=== PATIENT | male | born 1945 | race Caucasian/White ===

== ENCOUNTER → 2017-03-16 | Outpatient (CLI) | payer OTHER | END | disposition home or self-care (01) | LOC: CT 15:45 | DX: C78.01 Secondary malignant neoplasm of right lung (principal); C78.7 Secondary malignant neoplasm of liver and intrahepatic bile duct; C80.1 Malignant (primary) neoplasm, unspecified; F17.200 Nicotine dependence, unspecified, uncomplicated; R91.8 Other nonspecific abnormal finding of lung field ==

== ENCOUNTER 2017-04-04 10:28 | Inpatient (IN) | payer OTHER ==
[~2017-04-04] VITALS: Ht 182.8 cm; Wt 70.3 kg
[2017-04-04] VITALS (46 sets, daily range): BP systolic 44–125; BP diastolic 22–63
--- NOTE | ~2017-04-04 | PROC NOTE ---
[place], [place] PROCEDURE NOTE NAME: [id number] UNIT #: [id number] ROOM: [facility] DOCTOR: GLENDY WOLF DO BIRTHDATE: [birth year] DOS: 04/04/2017 PROCEDURE: Arterial line placement. PROCEDURE NOTE: This is a 71-year-old male currently admitted on the hospitalist service for septic shock. I was consulted by the hospitalist to assist with the arterial line placement. The procedure was performed with the assistance of resident Dr. Ruiz. An arterial line was placed in the left radial artery with ultrasound guidance. Sterile technique was maintained. There were no complications during the procedure. GLENDY WOLF DO CM:PROCNOTE:PROCEDURE NOTE [id number] GLENDY WOLF DO
--- NOTE | ~2017-04-04 | EKG ---
[place], [place] ELECTROCARDIOGRAM REPORT NAME: BEE ALVAREZ UNIT #: [id number] ROOM: [facility] DOCTOR: ROLANDA LECHUGA MD,CARMEN BIRTHDATE: [birth year] DOS: 04/04/2017 The electrocardiogram done in 04/04/2017 at 10:26 a.m. Normal sinus rhythm with heart rate of 75 beats per minute without any other acute abnormalities detected. CARMEN ORANTES MD CM:EKGRPT:ELECTROCARDIOGRAM REPORT 1538 1544 CARMEN LECHUGA MD
--- NOTE | ~2017-04-04 | EKG ---
[place], [place] ELECTROCARDIOGRAM REPORT NAME: BEE ALVAREZ UNIT #: [id number] ROOM: [facility] DOCTOR: ROLANDA LECHUGA MD,CARMEN BIRTHDATE: [birth year] DOS: 04/04/2017 The electrocardiogram was done on 04/04/2017 1018 at 11:18 a.m. Atrial fibrillation noted rapid ventricular response with heart rate for 144 beats per minute. CARMEN ORANTES MD CM:EKGRPT:ELECTROCARDIOGRAM REPORT 1538 1545 CARMEN LECHUGA MD
--- NOTE | ~2017-04-04 | EKG ---
[place], [place] ELECTROCARDIOGRAM REPORT NAME: BEE ALVAREZ UNIT #: [id number] ROOM: [facility] DOCTOR: ROLANDA LECHUGA MD,CARMEN BIRTHDATE: [birth year] DOS: 04/04/2017 The electrocardiogram was done 04/04/2017 at 10:12 p.m. At that time, the patient's rhythm was undetermined with widening of the QRS complex generalized with possibility of ventricle origin. The rate was determined at 106 beats per minute. IMPRESSION: This is an acute change of the patient as compared to the previous electrocardiogram, possibility acute myocardial infarction anterolateral wall cannot be excluded. CARMEN ORANTES MD CM:EKGRPT:ELECTROCARDIOGRAM REPORT 1540 1548 CARMEN LECHUGA MD
--- NOTE | ~2017-04-04 | PR ---
[place], [place] PROGRESS NOTE NAME: BEE ALVAREZ UNIT #: [id number] ROOM: [facility] DOCTOR: NEWTON YIP DO BIRTHDATE: [birth year] DOS: 04/04/2017 CODE NOTE Code Sai was called on the night of 04/04/2017. Proceeded directly to ICU bed. The patient was found to be in AFib, systole. Compressions were already in progress. Code was run according to ACLS algorithms. Patient was already intubated. See the code chart for details. After multiple rounds of compressions and ACLS medications and interventions, patient's family was consulted while patient was in asystole. Patient's family decided they wanted to cease resuscitative efforts due to the patient's poor prognostic factors. Patient was pronounced in accordance with family's wishes to cease resuscitative efforts. CRITICAL CARE TIME: 85 minutes. NEWTON YIP DO CM:PNTRANS [id number] NEWTON YIP DO 04/04/17 2329 interface
--- NOTE | ~2017-04-04 | CON ---
[place], [place] REPORT OF CONSULTATION NAME: BEE ALVAREZ UNIT #: [id number] ROOM: [facility] DOCTOR: ROLANDA LECHUGA MD,CARMEN BIRTHDATE: [birth year] DOS: 04/04/2017 I was asked for consultation to be seen for ____ septic shock with respiratory failure. The patient was not seen physically and did pass away prior to the consultation completion. CARMEN ORANTES MD CM:CONSTR:REPORT OF CONSULTATION 1040 04/05/17 1639 interface
[2017-04-04 10:50] LABS: ABG BASE EXCESS -2.6 mmol/L (-2.0-2.0); ABG HCO3 22.4 mmol/l (22-26); ABG O2 SATURATION 99.1 % (95-97); ARTERIAL BLOOD GAS PCO2 42.4 mmHg (35-45); ARTERIAL BLOOD GAS PH 7.341 (7.35-7.45)
[2017-04-04 11:06] LABS: HEMOGLOBIN 7.6 g/dl (14.0-18.0); MEAN CELL VOLUME 87.1 fl (80.0-94.0); MEAN CORPUSCULAR HGB 28.8 pg (27.0-31.0); MEAN PLATELET VOLUME 11.4 fl (9.6-12.3); RED BLOOD COUNT 2.64 10*6/uL (4.50-5.90); RED CELL DISTRI WIDTH 15.1 % (0-14.5)
[2017-04-04 11:07] LABS: PLATELET COUNT AUTOMATED 30 10*3/uL (130-400)
[2017-04-04 11:13] LABS: ACT PARTIAL THROMBO TIME 33.5 SECONDS (20.8-31.5); INTERNATIONAL NORM RATIO 1.2 (2.0-3.5)
[2017-04-04 11:19] LABS: ALBUMIN 1.7 gm/dl (3.1-4.5); CREATININE 4.1 mg/dL (0.70-1.30); POTASSIUM 3.8 mmol/L (3.5-5.1); TOTAL PROTEIN 5.2 gm/dL (6.4-8.2)
[2017-04-04 11:25] LABS: TOTAL CELLS COUNTED 25 #CELLS
[2017-04-04 11:26] LABS: BURR CELLS MODERATE; PLATELET SUFFICIENCY LOW (NORMAL); POLYCHROMASIA SLIGHT
[2017-04-04 11:27] LABS: WHITE BLOOD COUNT 0.2 10*3/uL (4.8-10.8)
[2017-04-04 11:28] LABS: TROPONIN I 0.437 ng/ml (<0.045)
[2017-04-04 13:11] LABS: BILIRUBIN 1+ (NEGATIVE); BLOOD 2+ (NEGATIVE); CLARITY CLOUDY (CLEAR); COLOR YELLOW (YELLOW); GLUCOSE NEGATIVE (NEGATIVE); KETONE NEGATIVE (NEGATIVE); LEUKO ESTERASE NEGATIVE (NEGATIVE); NITRITE NEGATIVE (NEGATIVE); SPECIFIC GRAVITY 1.025 (1.005-1.030)
[2017-04-04] MEDS ORDERED: PROCHLORPERAZIN10 M1 PO (13:52)
[2017-04-04] MEDS ORDERED: ADVAIR 250/501 EA INH (13:52)
[2017-04-04] MEDS ORDERED: LORAZEPAM0.5 MG PO (13:52)
[2017-04-04] MEDS ORDERED: NORCO 10-325 T1 EACH PO (13:53)
[2017-04-04] MEDS ORDERED: DRONABINOL2.5 MG PO (13:53)
[2017-04-04] MEDS ORDERED: CARVEDILOL25 MG PO (13:54)
[2017-04-04] MEDS ORDERED: ASPIR-TRIN325 MG PO (13:54)
[2017-04-04] MEDS ORDERED: ZETIA10 MG PO (13:56)
[2017-04-04] MEDS ORDERED: DULCOLAX STOOL100 MG PO (13:57)
[2017-04-04] MEDS ORDERED: SENNA LAXATIVE1 EACH PO (13:58)
[2017-04-04 14:04] LABS: BACTERIA 2+
[2017-04-04 15:45] LABS: ABG HCO3 18.1 mmol/l (22-26); ABG O2 SATURATION 97.8 % (95-97); ARTERIAL BLOOD GAS PCO2 51.1 mmHg (35-45)
[2017-04-04 15:49] LABS: ABG BASE EXCESS -9.7 mmol/L (-2.0-2.0); ARTERIAL BLOOD GAS PH 7.169 (7.35-7.45)
[2017-04-04 17:26] LABS: ABG HCO3 19.3 mmol/l (22-26); ABG O2 SATURATION 97.1 % (95-97); ARTERIAL BLOOD GAS PCO2 45.2 mmHg (35-45); ARTERIAL BLOOD GAS PH 7.247 (7.35-7.45)
[2017-04-04 17:28] LABS: ABG BASE EXCESS -7.3 mmol/L (-2.0-2.0)
[2017-04-04 17:53] LABS: HEMATOCRIT 23.7 % (42.0-52.0); HEMOGLOBIN 7.8 g/dl (14.0-18.0); MEAN CELL VOLUME 87.5 fl (80.0-94.0); MEAN CORPUSCULAR HGB 28.8 pg (27.0-31.0); MEAN CORPUSCULAR HGB CONC 32.9 g/dl (33.0-37.0); MEAN PLATELET VOLUME 11.2 fl (9.6-12.3); RED BLOOD COUNT 2.71 10*6/uL (4.50-5.90); RED CELL DISTRI WIDTH 15.6 % (0-14.5)
[2017-04-04 18:15] LABS: ALBUMIN 1.5 gm/dl (3.1-4.5); CREATININE 3.58 mg/dL (0.70-1.30); PHOSPHOROUS 6.5 mg/dL (2.5-4.9); TOTAL PROTEIN 4.5 gm/dL (6.4-8.2)
[2017-04-04 18:27] LABS: TROPONIN I 0.382 ng/ml (<0.045)
[2017-04-04 19:03] LABS: TOTAL CELLS COUNTED 100 #CELLS
[2017-04-04 19:04] LABS: BURR CELLS MODERATE; PLATELET SUFFICIENCY LOW (NORMAL); POLYCHROMASIA SLIGHT
[2017-04-04 19:07] LABS: PLATELET COUNT AUTOMATED 18 10*3/uL (130-400); WHITE BLOOD COUNT 0.2 10*3/uL (4.8-10.8)
== END 2017-04-04 22:41 | disposition expired | DRG 871 ==
LOC: ED 10:28 → EDHOLD 11:52 → ICCU 12:00
PROVIDERS: Emergency Medicine; Family Medicine; Internal Medicine Critical Care Medicine
PROC: 03HY32Z Insertion of Monitoring Device into Upper Artery, Percutaneous Approach (ICD-10-PCS; principal; 2017-04-04)
PROC: 4A133J1 Monitoring of Arterial Pulse, Peripheral, Percutaneous Approach (ICD-10-PCS; principal; 2017-04-04)
PROC: 06HY33Z Insertion of Infusion Device into Lower Vein, Percutaneous Approach (ICD-10-PCS; principal; 2017-04-04)
PROC: B54CZZA Ultrasonography of Left Lower Extremity Veins, Guidance (ICD-10-PCS; principal; 2017-04-04)
PROC: 30233R1 Transfusion of Nonautologous Platelets into Peripheral Vein, Percutaneous Approach (ICD-10-PCS; principal; 2017-04-04)
PROC: 5A1935Z Respiratory Ventilation, Less than 24 Consecutive Hours (ICD-10-PCS; principal; 2017-04-04)
PROC: 4A133B1 Monitoring of Arterial Pressure, Peripheral, Percutaneous Approach (ICD-10-PCS; principal; 2017-04-04)
PROC: 0BH17EZ Insertion of Endotracheal Airway into Trachea, Via Natural or Artificial Opening (ICD-10-PCS; principal; 2017-04-04)
PROC: 5A12012 Performance of Cardiac Output, Single, Manual (ICD-10-PCS; principal; 2017-04-04)
DX: A41.9 Sepsis, unspecified organism (principal); R65.21 Severe sepsis with septic shock; I46.9 Cardiac arrest, cause unspecified; I21.11 ST elevation (STEMI) myocardial infarction involving right coronary artery; N17.0 Acute kidney failure with tubular necrosis; J96.01 Acute respiratory failure with hypoxia; J96.02 Acute respiratory failure with hypercapnia; D69.6 Thrombocytopenia, unspecified; E83.41 Hypermagnesemia; I48.91 Unspecified atrial fibrillation; E86.0 Dehydration; G93.41 Metabolic encephalopathy; I10 Essential (primary) hypertension; D70.1 Agranulocytosis secondary to cancer chemotherapy; D70.9 Neutropenia, unspecified; T45.1X5A Adverse effect of antineoplastic and immunosuppressive drugs, initial encounter; D64.9 Anemia, unspecified; R73.9 Hyperglycemia, unspecified; Y92.89 Other specified places as the place of occurrence of the external cause; Z85.118 Personal history of other malignant neoplasm of bronchus and lung; Z87.891 Personal history of nicotine dependence; Z83.3 Family history of diabetes mellitus; Z82.49 Family history of ischemic heart disease and other diseases of the circulatory system; Z80.9 Family history of malignant neoplasm, unspecified